=== PATIENT | male | born 1945 | race Caucasian/White ===

== ENCOUNTER → 2018-11-07 08:02 | Outpatient (CLI) | payer OTHER, SELFPAY ==
[2018-11-07 09:15] LABS: Add Manual Diff / Slide Review NO; Basophils Absolute Auto 0 /uL (0-100); Basophils Percent Auto 0.8 % (0-2); Eosinophils Absolute Auto 200 /uL (0-450); Eosinophils Percent Auto 2.9 % (2-4); Hemoglobin 15.4 g/dL (13.5-17.5); Lymphocytes Absolute Auto 1400 /uL (1100-4500); Lymphocytes Percent Auto 26.9 % (25-40); Mean Corpuscular HGB Conc 34.2 % (30-36); Mean Corpuscular Hemoglobin 32.5 PG (26-34); Monocytes Absolute Auto 500 /uL (0-900); Monocytes Percent Auto 10.3 % (3-14); Neutrophils Absolute Auto 3100 /uL (1500-7000); Neutrophils Percent Auto 59.1 % (50-75); Platelet Count 260 X10^3/uL (150-400); Red Blood Cell Count 4.74 X10^6/uL (4.5-5.9); Red Cell Distribution Width 13.1 % (11.6-14.8); White Blood Cell Count 5.3 X10^3/uL (4.5-11.0)
[2018-11-07 09:33] LABS: Alanine Aminotransferase 48 IU/L (21-72); Albumin 4.5 g/dL (3.5-5.0); Albumin Globulin Ratio 1.7 (1.0-2.8); Alkaline Phosphatase 48 U/L (38-126); Aspartate Aminotransferase 32 IU/L (17-59); BUN Creatinine Ratio 17.3 (6-22); Bilirubin Total 0.6 mg/dL (0.2-1.3); Blood Urea Nitrogen 19 mg/dL (9-20); Calcium 9.2 mg/dL (8.4-10.2); Carbon Dioxide 26 mmol/L (22-32); Chloride 104 mmol/L (98-107); Estimated Glomerular Filt Rate > 60.0 mL/min (>60); Globulin 2.7 g/dL (1.7-4.1); Glucose 93 mg/dL (80-110); HEMOLYSIS < 15 (0-50); Potassium 4.7 mmol/L (3.4-5.1); Sodium 140 mmol/L (137-145); Total Protein 7.2 g/dL (6.3-8.2)
[2018-11-07 10:04] LABS: Thyroid Stimulating Hormone 3.72 uIU/mL (0.47-4.68)
== END ==
PROVIDERS: PCP Family Medicine; Visit Provider Family Medicine
DX: N28.9 Disorder of kidney and ureter, unspecified (principal); Z13.9 Encounter for screening, unspecified
CPT/HCPCS: 36415; 80053; 84443; 85025

== ENCOUNTER → 2024-04-18 10:07 | Outpatient (CLI) | payer OTHER, SELFPAY ==
--- NOTE | 2024-04-18 10:08 | DI.US.S_ITS ---
PROCEDURE: US ARTERIAL DUPLEX LE BI INDICATIONS: LE Edema, Neuropathy TECHNIQUE: Color and pulse Doppler interrogation was performed of both lower extremity arterial systems, with image documentation. COMPARISON: None. FINDINGS: Right lower extremity: Common femoral artery: 141 cm/sec, with triphasic flow. Deep femoral artery: 174 cm/sec, with triphasic flow. Proximal superficial femoral artery: 100 cm/sec, with tract flow. Mid superficial femoral artery: 100 cm/sec, with triphasic flow. Distal superficial femoral artery: 98 cm/sec, with triphasic flow. Popliteal artery: 98 cm/sec, with triphasic flow. Posterior tibial artery: 114 cm/sec, with triphasic flow. Anterior tibial artery/dorsalis pedis: 32 cm/sec, with triphasic flow. Meneses-scale imaging description: No significant atherosclerotic plaque Left lower extremity: Common femoral artery: 141 cm/sec, with triphasic flow. Deep femoral artery: 146 cm/sec, with triphasic flow. Proximal superficial femoral artery: 115 cm/sec, with triphasic flow. Mid superficial femoral artery: 108 cm/sec, with triphasic flow. Distal superficial femoral artery: 119 cm/sec, with triphasic flow. Popliteal artery: 167 cm/sec, with triphasic flow. Posterior tibial artery: 117 cm/sec, with triphasic flow. Anterior tibial artery/dorsalis pedis: 73 cm/sec, with triphasic flow. Meneses-scale imaging description: No significant atherosclerotic plaque Veins were not imaged. IMPRESSION: Triphasic waveforms throughout with no evidence of hemodynamically significant arterial stenosis or occlusion Dictated by: Monty Cooley M.D. on 04/23/2024 at 14:24 Approved by: Monty Cooley M.D. on 04/23/2024 at 15:22
== END ==
PROVIDERS: PCP Family Medicine; Referring Provider Family Medicine; Visit Provider Family Medicine
DX: R60.0 Localized edema; R01.1 Cardiac murmur, unspecified; M79.2 Neuralgia and neuritis, unspecified; I87.2 Venous insufficiency (chronic) (peripheral)
CPT/HCPCS: 93925